=== PATIENT | male | born 1945 | race Caucasian/White ===

== ENCOUNTER 2018-09-09 19:40 | Inpatient (IN) | payer MEDICARE, BC ==
[2018-09-09] MEDS: ATORVASTATIN 10 MG TAB PO (21:00)
[2018-09-09] MEDS ORDERED: GLUCAGON 1 MG INJ IM (21:00)
[2018-09-09] MEDS: GUAIFENESIN LA 600 MG TABSR PO (21:00)
[2018-09-09] MEDS: MAGNESIUM OXIDE 400 MG TAB PO (21:00)
[2018-09-09] MEDS ORDERED: GLUCOSE GEL 15 GRAM TUBE BUCCAL (21:00)
[2018-09-09] MEDS: POLYETHYLENE GLYCOL 17 GM PACKET PO (21:00)
[2018-09-09] MEDS ORDERED: DEXTROSE 50% 50 ML SYRINGE IV ×2 (21:00)
[2018-09-09] MEDS ORDERED: GLUCOSE GEL 15 GRAM TUBE PO ×2 (21:00)
[2018-09-09] MEDS: ACCU-CHEK XX (21:00)
[2018-09-09] MEDS ORDERED: DOCUSATE SODIUM 100 MG CAP PO (21:00)
[2018-09-09] MEDS: TAMSULOSIN (SR) 0.4 MG CAP PO (21:00)
[2018-09-09] MEDS: INSULIN ASPART [NOVOLOG] 3 ML PEN SC (22:00)
[2018-09-09] MEDS ORDERED: PENDING SANTYL ORDER FOR WOUND CARE XX (22:00)
[2018-09-10 00:46] LABS: ADD UMIC YES; UR ASCORBIC ACID NEGATIVE (NEGATIVE); UR BACTERIA FEW /HPF (NONE SEEN); UR BILIRUBIN (Dip) NEGATIVE (NEGATIVE); UR BLOOD (Dip) 2+ mg/dL (NEGATIVE); UR CLARITY SLIGHTLY CLOUDY (CLEAR); UR COLOR YELLOW (YELLOW); UR GLUCOSE (Dip) NEGATIVE (NEGATIVE); UR KETONES (Dip) NEGATIVE (NEGATIVE); UR LEUKOCYTE ESTERASE (Dip) NEGATIVE Leu/ul (NEGATIVE); UR MUCUS FEW /HPF (NONE SEEN); UR NITRITE (Dip) NEGATIVE (NEGATIVE); UR RBC 9 /HPF (0-5); UR SPECIFIC GRAVITY (Dip) 1.029 (1.003-1.030); UR TOTAL PROTEIN (Dip) NEGATIVE (NEGATIVE); UR UROBILINOGEN (Dip) 1+ mg/dL (NEGATIVE); UR WBC 5 /HPF (0-5)
[2018-09-10] MEDS: LEVOTHYROXINE 125 MCG TAB PO (06:05)
[2018-09-10] MEDS: ACETAMINOPHEN 325 MG TAB PO ×4 (06:05→18:20)
[2018-09-10] MEDS: METHOCARBAMOL 750 MG TAB PO (06:05)
[2018-09-10] MEDS: LANSOPRAZOLE 30 MG CAP PO (06:05)
[2018-09-10 06:22] LABS: ADD MAN DIFF? NO
[2018-09-10 06:25] LABS: WHITE BLOOD COUNT 5.7 10^3/ul (4.8-10.8)
[2018-09-10 06:25] LABS: ABNORMAL IP MESSAGE 1; BASOPHILS % 0.2 % (0.0-2.0); EOSINOPHILS % 0.4 % (0.0-7.0); HEMATOCRIT 40.5 % (42.0-52.0); HEMOGLOBIN 13.5 g/dl (14.0-18.0); LYMPHOCYTES # 0.6 10^3/ul (0.8-2.9); LYMPHOCYTES % 10.3 % (15.0-51.0); MEAN CORPUSCULAR HEMOGLOBIN 32.9 pg (29.0-33.0); MEAN CORPUSCULAR HGB CONC 33.3 g/dl (32.0-37.0); MEAN CORPUSCULAR VOLUME 98.8 fl (82.0-101.0); MEAN PLATELET VOLUME 10.7 fl (7.4-10.4); MONOCYTES % 16.6 % (0.0-11.0); NEUTROPHIL # 4.1 10^3/ul (1.6-7.5); NEUTROPHILS % 72.1 % (39.0-77.0); PLATELET COUNT 155 10^3/UL (140-415); POSITIVE DIFF @See below; RED CELL DISTRIBUTION WIDTH 13.2 % (11.5-14.5)
[2018-09-10 06:47] LABS: HEMOGLOBIN A1C 6.7 % (0-5.9)
[2018-09-10 06:58] LABS: ALANINE AMINOTRANSFERASE 7 IU/L (13-69); ALBUMIN 3.3 g/dl (3.3-4.9); ALBUMIN/GLOBULIN RATIO 0.97; ALKALINE PHOSPHATASE 48 IU/L (42-121); ANION GAP 9 (5-13); ASPARTATE AMINO TRANSFERASE 27 IU/L (15-46); BILIRUBIN,INDIRECT 0.4 mg/dl (0-1.1); BILIRUBIN,TOTAL 0.4 mg/dl (0.2-1.3); BLOOD UREA NITROGEN 25 mg/dl (7-20); CALCIUM 8.7 mg/dl (8.4-10.2); CARBON DIOXIDE 28 mmol/L (21-31); CHLORIDE 98 mmol/L (97-110); CREATININE 1.48 mg/dl (0.61-1.24); GLUCOSE 143 mg/dl (70-220); POTASSIUM 4.4 mmol/L (3.5-5.1); SODIUM 135 mmol/L (135-144); TOTAL PROTEIN 6.7 g/dl (6.1-8.1)
[2018-09-10] MEDS: INSULIN ASPART [NOVOLOG] 3 ML PEN SC ×4 (07:35→21:00)
[2018-09-10] MEDS: metFORMIN 500 MG TAB PO ×2 (08:16→19:32)
[2018-09-10] MEDS: ACCU-CHEK XX ×4 (08:17→21:24)
[2018-09-10] MEDS: POLYETHYLENE GLYCOL 17 GM PACKET PO ×2 (09:00→20:57)
[2018-09-10] MEDS ORDERED: COLCHICINE 0.6 MG TAB PO (09:00)
[2018-09-10] MEDS: DOCUSATE SODIUM 100 MG CAP PO ×2 (09:00→20:57)
[2018-09-10] MEDS: traMADol 50 MG TAB PO (09:50)
[2018-09-10] MEDS: GUAIFENESIN LA 600 MG TABSR PO ×2 (09:53→20:49)
[2018-09-10] MEDS: FOLIC ACID 1 MG TAB PO (09:53)
[2018-09-10] MEDS: LOSARTAN 50 MG TAB PO (09:57)
[2018-09-10] MEDS: TAMSULOSIN (SR) 0.4 MG CAP PO (20:48)
[2018-09-10] MEDS: ATORVASTATIN 10 MG TAB PO (20:48)
[2018-09-10] MEDS: GABAPENTIN 100 MG CAP PO (20:49)
[2018-09-10] MEDS: MAGNESIUM OXIDE 400 MG TAB PO (20:49)
[2018-09-10] MEDS: SENNA TAB PO (20:58)
[2018-09-11] MEDS: traMADol 50 MG TAB PO ×3 (03:13→20:24)
[2018-09-11] MEDS: LEVOTHYROXINE 125 MCG TAB PO (06:09)
[2018-09-11] MEDS: LANSOPRAZOLE 30 MG CAP PO (06:09)
[2018-09-11] MEDS: ACETAMINOPHEN 325 MG TAB PO ×4 (06:12→17:55)
[2018-09-11 06:40] LABS: ADD MAN DIFF? NO
[2018-09-11 06:43] LABS: WHITE BLOOD COUNT 6.5 10^3/ul (4.8-10.8)
[2018-09-11 06:43] LABS: BASOPHILS % 0.3 % (0.0-2.0); EOSINOPHILS % 0.6 % (0.0-7.0); HEMATOCRIT 37.2 % (42.0-52.0); HEMOGLOBIN 12.5 g/dl (14.0-18.0); LYMPHOCYTES # 1.1 10^3/ul (0.8-2.9); LYMPHOCYTES % 17.5 % (15.0-51.0); MEAN CORPUSCULAR HEMOGLOBIN 32.7 pg (29.0-33.0); MEAN CORPUSCULAR HGB CONC 33.6 g/dl (32.0-37.0); MEAN CORPUSCULAR VOLUME 97.4 fl (82.0-101.0); MEAN PLATELET VOLUME 10.5 fl (7.4-10.4); MONOCYTE # 1.1 10^3/ul (0.3-0.9); MONOCYTES % 17.1 % (0.0-11.0); NEUTROPHIL # 4.1 10^3/ul (1.6-7.5); NEUTROPHILS % 63.6 % (39.0-77.0); PLATELET COUNT 154 10^3/UL (140-415); RED BLOOD COUNT 3.82 10^6/ul (4.70-6.10); RED CELL DISTRIBUTION WIDTH 13.4 % (11.5-14.5)
[2018-09-11 07:16] LABS: ANION GAP 8 (5-13); BLOOD UREA NITROGEN 26 mg/dl (7-20); CALCIUM 8.3 mg/dl (8.4-10.2); CARBON DIOXIDE 28 mmol/L (21-31); CHLORIDE 98 mmol/L (97-110); CREATININE 1.46 mg/dl (0.61-1.24); GLUCOSE 132 mg/dl (70-220); MAGNESIUM 2.2 mg/dl (1.7-2.5); PHOSPHORUS 3.8 mg/dl (2.5-4.9); POTASSIUM 4.1 mmol/L (3.5-5.1); SODIUM 134 mmol/L (135-144)
[2018-09-11] MEDS: INSULIN ASPART [NOVOLOG] 3 ML PEN SC ×4 (07:35→21:00)
[2018-09-11] MEDS: ACCU-CHEK XX ×4 (08:03→21:00)
[2018-09-11] MEDS: DOCUSATE SODIUM 100 MG CAP PO ×2 (08:41→21:00)
[2018-09-11] MEDS: metFORMIN 500 MG TAB PO ×2 (08:41→17:48)
[2018-09-11] MEDS: FOLIC ACID 1 MG TAB PO (08:43)
[2018-09-11] MEDS: LOSARTAN 50 MG TAB PO (08:43)
[2018-09-11] MEDS: GUAIFENESIN LA 600 MG TABSR PO ×2 (08:44→20:23)
[2018-09-11] MEDS: POLYETHYLENE GLYCOL 17 GM PACKET PO ×3 (08:44→21:00)
[2018-09-11] MEDS: GABAPENTIN 100 MG CAP PO ×2 (08:44→20:24)
[2018-09-11] MEDS: CYCLOBENZAPRINE 10 MG TAB PO ×2 (13:47→20:24)
[2018-09-11] MEDS: TAMSULOSIN (SR) 0.4 MG CAP PO (20:23)
[2018-09-11] MEDS: MAGNESIUM OXIDE 400 MG TAB PO (20:23)
[2018-09-11] MEDS: ATORVASTATIN 10 MG TAB PO (20:24)
[2018-09-11] MEDS: SENNA TAB PO (21:00)
[2018-09-12] MEDS: ACETAMINOPHEN 325 MG TAB PO ×4 (06:14→18:00)
[2018-09-12] MEDS: LANSOPRAZOLE 30 MG CAP PO (06:14)
[2018-09-12] MEDS: ACCU-CHEK XX ×4 (07:05→21:51)
[2018-09-12] MEDS: INSULIN ASPART [NOVOLOG] 3 ML PEN SC ×4 (07:35→21:00)
[2018-09-12] MEDS: metFORMIN 500 MG TAB PO ×3 (08:16→18:01)
[2018-09-12] MEDS: POLYETHYLENE GLYCOL 17 GM PACKET PO ×2 (09:00→21:00)
[2018-09-12] MEDS: GUAIFENESIN LA 600 MG TABSR PO ×2 (09:29→21:27)
[2018-09-12] MEDS: GABAPENTIN 100 MG CAP PO ×2 (09:29→20:48)
[2018-09-12] MEDS: DOCUSATE SODIUM 100 MG CAP PO ×2 (09:29→21:00)
[2018-09-12] MEDS: FOLIC ACID 1 MG TAB PO (09:30)
[2018-09-12] MEDS: traMADol 50 MG TAB PO (09:30)
[2018-09-12] MEDS: ONDANSETRON 4 MG TAB PO (09:30)
[2018-09-12] MEDS: CYCLOBENZAPRINE 10 MG TAB PO ×2 (09:30→13:03)
[2018-09-12] MEDS: LOSARTAN 50 MG TAB PO (09:30)
[2018-09-12] MEDS: LEVOTHYROXINE 125 MCG TAB PO (12:00)
[2018-09-12] MEDS: HYDROCODONE/APAP (10/325) TAB PO (15:53)
[2018-09-12] MEDS: TAMSULOSIN (SR) 0.4 MG CAP PO (20:47)
[2018-09-12] MEDS: BACLOFEN 10 MG TAB PO (20:48)
[2018-09-12] MEDS: MAGNESIUM OXIDE 400 MG TAB PO (20:48)
[2018-09-12] MEDS: ATORVASTATIN 10 MG TAB PO (20:48)
[2018-09-12] MEDS: SENNA TAB PO (21:00)
[2018-09-13] MEDS: LANSOPRAZOLE 30 MG CAP PO (06:11)
[2018-09-13] MEDS: LEVOTHYROXINE 125 MCG TAB PO (06:12)
[2018-09-13] MEDS: ACETAMINOPHEN 325 MG TAB PO ×4 (06:12→17:47)
[2018-09-13] MEDS: traMADol 50 MG TAB PO ×2 (06:13→10:36)
[2018-09-13] MEDS: ACCU-CHEK XX ×4 (07:05→21:00)
[2018-09-13] MEDS: INSULIN ASPART [NOVOLOG] 3 ML PEN SC ×4 (07:35→21:00)
[2018-09-13] MEDS: ALBUTEROL/IPRATROPIUM (NEB) 3 ML AMP HHN (08:54)
[2018-09-13 08:55] LABS: ADD MAN DIFF? NO
[2018-09-13] MEDS: DOCUSATE SODIUM 100 MG CAP PO ×3 (09:00→21:08)
[2018-09-13] MEDS: LOSARTAN 50 MG TAB PO (09:00)
[2018-09-13 09:03] LABS: WHITE BLOOD COUNT 7.2 10^3/ul (4.8-10.8)
[2018-09-13 09:03] LABS: BASOPHIL # 0.1 10^3/ul (0.0-0.1); BASOPHILS % 0.7 % (0.0-2.0); EOSINOPHILS # 0.1 10^3/ul (0.0-0.5); EOSINOPHILS % 1.1 % (0.0-7.0); HEMATOCRIT 37.5 % (42.0-52.0); HEMOGLOBIN 12.7 g/dl (14.0-18.0); LYMPHOCYTES # 1.2 10^3/ul (0.8-2.9); LYMPHOCYTES % 16.2 % (15.0-51.0); MEAN CORPUSCULAR HGB CONC 33.9 g/dl (32.0-37.0); MEAN CORPUSCULAR VOLUME 97.4 fl (82.0-101.0); MEAN PLATELET VOLUME 11.1 fl (7.4-10.4); MONOCYTE # 0.7 10^3/ul (0.3-0.9); NEUTROPHIL # 5.1 10^3/ul (1.6-7.5); NEUTROPHILS % 70.2 % (39.0-77.0); PLATELET COUNT 192 10^3/UL (140-415); RED BLOOD COUNT 3.85 10^6/ul (4.70-6.10); RED CELL DISTRIBUTION WIDTH 13.2 % (11.5-14.5)
[2018-09-13 09:45] LABS: ANION GAP 10 (5-13); BLOOD UREA NITROGEN 24 mg/dl (7-20); CALCIUM 8.4 mg/dl (8.4-10.2); CARBON DIOXIDE 27 mmol/L (21-31); CHLORIDE 97 mmol/L (97-110); CREATININE 1.17 mg/dl (0.61-1.24); GLUCOSE 102 mg/dl (70-220); PHOSPHORUS 3.8 mg/dl (2.5-4.9); SODIUM 134 mmol/L (135-144)
[2018-09-13] MEDS: GUAIFENESIN LA 600 MG TABSR PO ×2 (10:36→21:08)
[2018-09-13] MEDS: FOLIC ACID 1 MG TAB PO (10:37)
[2018-09-13] MEDS: metFORMIN 500 MG TAB PO ×2 (10:37→17:49)
[2018-09-13] MEDS: POLYETHYLENE GLYCOL 17 GM PACKET PO ×2 (10:38→10:52)
[2018-09-13] MEDS: BACLOFEN 10 MG TAB PO ×3 (10:38→21:08)
[2018-09-13] MEDS: GABAPENTIN 100 MG CAP PO ×2 (10:39→21:08)
[2018-09-13] MEDS: SENNA TAB PO (21:08)
[2018-09-13] MEDS: TAMSULOSIN (SR) 0.4 MG CAP PO (21:08)
[2018-09-13] MEDS: MAGNESIUM OXIDE 400 MG TAB PO (21:08)
[2018-09-13] MEDS: ATORVASTATIN 10 MG TAB PO (21:08)
[2018-09-14] MEDS: LANSOPRAZOLE 30 MG CAP PO (06:14)
[2018-09-14] MEDS: LEVOTHYROXINE 125 MCG TAB PO (06:16)
[2018-09-14] MEDS: ACCU-CHEK XX ×4 (07:05→21:00)
[2018-09-14] MEDS: INSULIN ASPART [NOVOLOG] 3 ML PEN SC ×4 (07:35→21:00)
[2018-09-14] MEDS: HYDROCODONE/APAP (10/325) TAB PO (08:54)
[2018-09-14] MEDS: GABAPENTIN 100 MG CAP PO ×2 (08:56→22:12)
[2018-09-14] MEDS: DOCUSATE SODIUM 100 MG CAP PO ×2 (08:56→21:00)
[2018-09-14] MEDS: BACLOFEN 10 MG TAB PO ×4 (08:56→22:31)
[2018-09-14] MEDS: metFORMIN 500 MG TAB PO ×2 (08:56→18:03)
[2018-09-14] MEDS: GUAIFENESIN LA 600 MG TABSR PO ×2 (08:56→22:14)
[2018-09-14] MEDS: LOSARTAN 50 MG TAB PO (09:05)
[2018-09-14] MEDS: FOLIC ACID 1 MG TAB PO (09:07)
[2018-09-14] MEDS: POLYETHYLENE GLYCOL 17 GM PACKET PO ×2 (09:08→21:00)
[2018-09-14 13:48] LABS: ADD MAN DIFF? NO
[2018-09-14 13:49] LABS: BASOPHIL # 0.1 10^3/ul (0.0-0.1); EOSINOPHILS # 0.1 10^3/ul (0.0-0.5); EOSINOPHILS % 1.3 % (0.0-7.0); HEMATOCRIT 40.7 % (42.0-52.0); HEMOGLOBIN 13.5 g/dl (14.0-18.0); LYMPHOCYTES # 1.5 10^3/ul (0.8-2.9); LYMPHOCYTES % 17.1 % (15.0-51.0); MEAN CORPUSCULAR HEMOGLOBIN 32.8 pg (29.0-33.0); MEAN CORPUSCULAR HGB CONC 33.2 g/dl (32.0-37.0); MEAN CORPUSCULAR VOLUME 98.8 fl (82.0-101.0); MEAN PLATELET VOLUME 9.5 fl (7.4-10.4); MONOCYTE # 0.7 10^3/ul (0.3-0.9); MONOCYTES % 8.3 % (0.0-11.0); NEUTROPHIL # 5.9 10^3/ul (1.6-7.5); NEUTROPHILS % 67.6 % (39.0-77.0); PLATELET COUNT 234 10^3/UL (140-415); RED BLOOD COUNT 4.12 10^6/ul (4.70-6.10); RED CELL DISTRIBUTION WIDTH 13.3 % (11.5-14.5)
[2018-09-14 13:49] LABS: WHITE BLOOD COUNT 8.7 10^3/ul (4.8-10.8)
[2018-09-14] MEDS: LACTULOSE 30ML CUP PO (18:04)
[2018-09-14] MEDS: SENNA TAB PO (21:00)
[2018-09-14] MEDS: MAGNESIUM OXIDE 400 MG TAB PO (22:12)
[2018-09-14] MEDS: ATORVASTATIN 10 MG TAB PO (22:12)
[2018-09-14] MEDS: TAMSULOSIN (SR) 0.4 MG CAP PO (22:13)
[2018-09-14] MEDS: traMADol 50 MG TAB PO (22:13)
[2018-09-15] MEDS: ACETAMINOPHEN 325 MG TAB PO (00:10)
[2018-09-15] MEDS: SALINE 0.65% 45 ML NAS SPRAY NASAL ×2 (00:11→18:40)
[2018-09-15] MEDS: LEVOTHYROXINE 125 MCG TAB PO (07:10)
[2018-09-15] MEDS: LANSOPRAZOLE 30 MG CAP PO (07:10)
[2018-09-15] MEDS: INSULIN ASPART [NOVOLOG] 3 ML PEN SC ×4 (07:35→20:27)
[2018-09-15] MEDS: ACCU-CHEK XX ×4 (08:00→20:27)
[2018-09-15] MEDS: metFORMIN 500 MG TAB PO ×2 (08:20→17:39)
[2018-09-15] MEDS: DOCUSATE SODIUM 100 MG CAP PO ×2 (09:00→20:20)
[2018-09-15] MEDS: POLYETHYLENE GLYCOL 17 GM PACKET PO ×2 (09:00→20:24)
[2018-09-15] MEDS: LOSARTAN 50 MG TAB PO (09:00)
[2018-09-15] MEDS: FOLIC ACID 1 MG TAB PO (09:51)
[2018-09-15] MEDS: GUAIFENESIN LA 600 MG TABSR PO ×2 (09:51→20:20)
[2018-09-15] MEDS: BACLOFEN 10 MG TAB PO ×3 (09:51→20:20)
[2018-09-15] MEDS: GABAPENTIN 100 MG CAP PO ×2 (09:51→20:20)
[2018-09-15] MEDS: ATORVASTATIN 10 MG TAB PO (20:20)
[2018-09-15] MEDS: MAGNESIUM OXIDE 400 MG TAB PO (20:20)
[2018-09-15] MEDS: TAMSULOSIN (SR) 0.4 MG CAP PO (20:20)
[2018-09-15] MEDS: SENNA TAB PO (20:25)
[2018-09-16] MEDS: LANSOPRAZOLE 30 MG CAP PO (06:45)
[2018-09-16] MEDS: LEVOTHYROXINE 125 MCG TAB PO (06:45)
[2018-09-16] MEDS: ACCU-CHEK XX ×4 (07:05→20:49)
[2018-09-16] MEDS: INSULIN ASPART [NOVOLOG] 3 ML PEN SC ×4 (07:35→20:49)
[2018-09-16] MEDS: metFORMIN 500 MG TAB PO ×2 (08:40→17:50)
[2018-09-16] MEDS: DOCUSATE SODIUM 100 MG CAP PO ×2 (08:41→20:37)
[2018-09-16] MEDS: GUAIFENESIN LA 600 MG TABSR PO ×2 (08:41→20:37)
[2018-09-16] MEDS: BACLOFEN 10 MG TAB PO ×3 (08:41→20:37)
[2018-09-16] MEDS: FOLIC ACID 1 MG TAB PO (08:41)
[2018-09-16] MEDS: GABAPENTIN 100 MG CAP PO ×2 (08:42→20:37)
[2018-09-16] MEDS: POLYETHYLENE GLYCOL 17 GM PACKET PO ×2 (08:42→20:37)
[2018-09-16] MEDS: LOSARTAN 50 MG TAB PO (08:42)
[2018-09-16] MEDS: ACETAMINOPHEN 325 MG TAB PO (13:48)
[2018-09-16] MEDS: TAMSULOSIN (SR) 0.4 MG CAP PO (20:37)
[2018-09-16] MEDS: MAGNESIUM OXIDE 400 MG TAB PO (20:37)
[2018-09-16] MEDS: SENNA TAB PO (20:37)
[2018-09-16] MEDS: ATORVASTATIN 10 MG TAB PO (20:37)
[2018-09-17] MEDS: LEVOTHYROXINE 125 MCG TAB PO (06:12)
[2018-09-17] MEDS: LANSOPRAZOLE 30 MG CAP PO (06:12)
[2018-09-17] MEDS: ACCU-CHEK XX ×4 (07:05→21:14)
[2018-09-17] MEDS: INSULIN ASPART [NOVOLOG] 3 ML PEN SC ×4 (07:35→20:57)
[2018-09-17] MEDS: DOCUSATE SODIUM 100 MG CAP PO ×2 (09:00→20:45)
[2018-09-17] MEDS: POLYETHYLENE GLYCOL 17 GM PACKET PO ×2 (09:00→20:46)
[2018-09-17] MEDS: metFORMIN 500 MG TAB PO ×2 (09:55→17:35)
[2018-09-17] MEDS: GUAIFENESIN LA 600 MG TABSR PO ×2 (09:57→20:45)
[2018-09-17] MEDS: BACLOFEN 10 MG TAB PO ×3 (09:57→20:44)
[2018-09-17] MEDS: LOSARTAN 50 MG TAB PO (09:58)
[2018-09-17] MEDS: GABAPENTIN 100 MG CAP PO ×2 (09:59→20:45)
[2018-09-17] MEDS: FOLIC ACID 1 MG TAB PO (12:37)
[2018-09-17] MEDS: ACETAMINOPHEN 325 MG TAB PO (20:44)
[2018-09-17] MEDS: ATORVASTATIN 10 MG TAB PO (20:44)
[2018-09-17] MEDS: MAGNESIUM OXIDE 400 MG TAB PO (20:44)
[2018-09-17] MEDS: TAMSULOSIN (SR) 0.4 MG CAP PO (20:45)
[2018-09-17] MEDS: SENNA TAB PO (20:46)
[2018-09-18] MEDS: LEVOTHYROXINE 125 MCG TAB PO (06:09)
[2018-09-18] MEDS: LANSOPRAZOLE 30 MG CAP PO (06:11)
[2018-09-18] MEDS: INSULIN ASPART [NOVOLOG] 3 ML PEN SC ×4 (07:35→21:00)
[2018-09-18] MEDS: ACCU-CHEK XX ×4 (08:02→21:00)
[2018-09-18] MEDS: metFORMIN 500 MG TAB PO ×2 (08:05→17:56)
[2018-09-18] MEDS: LOSARTAN 50 MG TAB PO (09:00)
[2018-09-18] MEDS: DOCUSATE SODIUM 100 MG CAP PO ×2 (09:00→21:00)
[2018-09-18] MEDS: POLYETHYLENE GLYCOL 17 GM PACKET PO ×2 (09:00→21:00)
[2018-09-18] MEDS: GUAIFENESIN LA 600 MG TABSR PO ×2 (09:39→21:08)
[2018-09-18] MEDS: GABAPENTIN 100 MG CAP PO ×2 (09:40→21:10)
[2018-09-18] MEDS: BACLOFEN 10 MG TAB PO ×3 (09:42→21:10)
[2018-09-18] MEDS: FOLIC ACID 1 MG TAB PO (09:42)
[2018-09-18] MEDS: ALBUTEROL/IPRATROPIUM (NEB) 3 ML AMP HHN (10:44)
[2018-09-18] MEDS: SALINE 0.65% 45 ML NAS SPRAY NASAL (18:55)
[2018-09-18] MEDS: SENNA TAB PO (21:00)
[2018-09-18] MEDS: ATORVASTATIN 10 MG TAB PO (21:08)
[2018-09-18] MEDS: ACETAMINOPHEN 325 MG TAB PO (21:09)
[2018-09-18] MEDS: MAGNESIUM OXIDE 400 MG TAB PO (21:10)
[2018-09-18] MEDS: TAMSULOSIN (SR) 0.4 MG CAP PO (21:12)
[2018-09-19] MEDS: LANSOPRAZOLE 30 MG CAP PO (06:03)
[2018-09-19] MEDS: LEVOTHYROXINE 125 MCG TAB PO (06:03)
[2018-09-19] MEDS: INSULIN ASPART [NOVOLOG] 3 ML PEN SC ×4 (07:35→21:00)
[2018-09-19] MEDS: ACCU-CHEK XX ×4 (07:55→21:00)
[2018-09-19] MEDS: metFORMIN 500 MG TAB PO ×2 (08:19→17:35)
[2018-09-19] MEDS: DOCUSATE SODIUM 100 MG CAP PO ×2 (08:35→21:00)
[2018-09-19] MEDS: LOSARTAN 50 MG TAB PO (08:35)
[2018-09-19] MEDS: GUAIFENESIN LA 600 MG TABSR PO ×2 (08:36→21:24)
[2018-09-19] MEDS: FOLIC ACID 1 MG TAB PO (08:36)
[2018-09-19] MEDS: BACLOFEN 10 MG TAB PO ×3 (08:36→21:25)
[2018-09-19] MEDS: GABAPENTIN 100 MG CAP PO ×2 (08:36→21:25)
[2018-09-19] MEDS: POLYETHYLENE GLYCOL 17 GM PACKET PO ×2 (08:37→21:00)
[2018-09-19] MEDS: SENNA TAB PO (21:00)
[2018-09-19] MEDS: ACETAMINOPHEN 325 MG TAB PO (21:24)
[2018-09-19] MEDS: TAMSULOSIN (SR) 0.4 MG CAP PO (21:24)
[2018-09-19] MEDS: ATORVASTATIN 10 MG TAB PO (21:24)
[2018-09-19] MEDS: MAGNESIUM OXIDE 400 MG TAB PO (21:24)
[2018-09-20] MEDS: LANSOPRAZOLE 30 MG CAP PO (05:54)
[2018-09-20] MEDS: LEVOTHYROXINE 125 MCG TAB PO (05:54)
[2018-09-20 07:27] LABS: ADD MAN DIFF? NO
[2018-09-20 07:32] LABS: WHITE BLOOD COUNT 8.9 10^3/ul (4.8-10.8)
[2018-09-20 07:32] LABS: ABNORMAL IP MESSAGE 1; BASOPHIL # 0.1 10^3/ul (0.0-0.1); EOSINOPHILS # 0.2 10^3/ul (0.0-0.5); EOSINOPHILS % 2.6 % (0.0-7.0); HEMATOCRIT 38.3 % (42.0-52.0); HEMOGLOBIN 12.2 g/dl (14.0-18.0); LYMPHOCYTES # 1.7 10^3/ul (0.8-2.9); LYMPHOCYTES % 19.5 % (15.0-51.0); MEAN CORPUSCULAR HEMOGLOBIN 31.7 pg (29.0-33.0); MEAN CORPUSCULAR HGB CONC 31.9 g/dl (32.0-37.0); MEAN CORPUSCULAR VOLUME 99.5 fl (82.0-101.0); MEAN PLATELET VOLUME 9.8 fl (7.4-10.4); MONOCYTE # 0.7 10^3/ul (0.3-0.9); MONOCYTES % 7.8 % (0.0-11.0); NEUTROPHIL # 5.7 10^3/ul (1.6-7.5); NEUTROPHILS % 63.8 % (39.0-77.0); PLATELET COUNT 428 10^3/UL (140-415); POSITIVE DIFF @See below; RED BLOOD COUNT 3.85 10^6/ul (4.70-6.10); RED CELL DISTRIBUTION WIDTH 13.2 % (11.5-14.5)
[2018-09-20] MEDS: INSULIN ASPART [NOVOLOG] 3 ML PEN SC ×4 (07:35→21:00)
[2018-09-20] MEDS: metFORMIN 500 MG TAB PO ×2 (07:49→17:47)
[2018-09-20] MEDS: ACCU-CHEK XX ×4 (07:49→21:00)
[2018-09-20 07:52] LABS: ANION GAP 8 (5-13); BLOOD UREA NITROGEN 26 mg/dl (7-20); CARBON DIOXIDE 27 mmol/L (21-31); CHLORIDE 104 mmol/L (97-110); CREATININE 1.36 mg/dl (0.61-1.24); GLUCOSE 104 mg/dl (70-220); PHOSPHORUS 4.1 mg/dl (2.5-4.9); POTASSIUM 4.2 mmol/L (3.5-5.1); SODIUM 139 mmol/L (135-144)
[2018-09-20] MEDS: SALINE 0.65% 45 ML NAS SPRAY NASAL (08:17)
[2018-09-20] MEDS: GUAIFENESIN LA 600 MG TABSR PO ×2 (08:41→20:35)
[2018-09-20] MEDS: GABAPENTIN 100 MG CAP PO ×2 (08:42→20:35)
[2018-09-20] MEDS: BACLOFEN 10 MG TAB PO ×3 (08:42→20:34)
[2018-09-20] MEDS: FOLIC ACID 1 MG TAB PO (08:42)
[2018-09-20] MEDS: LOSARTAN 50 MG TAB PO (08:43)
[2018-09-20] MEDS: POLYETHYLENE GLYCOL 17 GM PACKET PO ×2 (08:45→21:00)
[2018-09-20] MEDS: DOCUSATE SODIUM 100 MG CAP PO ×2 (08:45→20:34)
[2018-09-20] MEDS: TAMSULOSIN (SR) 0.4 MG CAP PO (20:34)
[2018-09-20] MEDS: SENNA TAB PO (20:34)
[2018-09-20] MEDS: MAGNESIUM OXIDE 400 MG TAB PO (20:35)
[2018-09-20] MEDS: ATORVASTATIN 10 MG TAB PO (20:35)
[2018-09-20] MEDS: ACETAMINOPHEN 325 MG TAB PO (20:35)
[2018-09-21] MEDS: LEVOTHYROXINE 125 MCG TAB PO (06:05)
[2018-09-21] MEDS: LANSOPRAZOLE 30 MG CAP PO (06:05)
[2018-09-21] MEDS: INSULIN ASPART [NOVOLOG] 3 ML PEN SC ×4 (07:35→21:00)
[2018-09-21] MEDS: ACCU-CHEK XX ×4 (07:59→21:00)
[2018-09-21] MEDS: metFORMIN 500 MG TAB PO ×2 (08:02→17:46)
[2018-09-21] MEDS: POLYETHYLENE GLYCOL 17 GM PACKET PO ×3 (09:00→21:30)
[2018-09-21] MEDS: GABAPENTIN 100 MG CAP PO ×2 (09:00→21:33)
[2018-09-21] MEDS: DOCUSATE SODIUM 100 MG CAP PO ×2 (09:54→21:32)
[2018-09-21] MEDS: FOLIC ACID 1 MG TAB PO (09:54)
[2018-09-21] MEDS: BACLOFEN 10 MG TAB PO ×3 (09:55→21:31)
[2018-09-21] MEDS: GUAIFENESIN LA 600 MG TABSR PO ×2 (09:55→21:31)
[2018-09-21] MEDS: LOSARTAN 50 MG TAB PO (10:08)
[2018-09-21] MEDS: MAGNESIUM OXIDE 400 MG TAB PO (21:31)
[2018-09-21] MEDS: ATORVASTATIN 10 MG TAB PO (21:31)
[2018-09-21] MEDS: ACETAMINOPHEN 325 MG TAB PO (21:31)
[2018-09-21] MEDS: SENNA TAB PO (21:32)
[2018-09-21] MEDS: TAMSULOSIN (SR) 0.4 MG CAP PO (21:33)
[2018-09-22] MEDS: LEVOTHYROXINE 125 MCG TAB PO (05:59)
[2018-09-22] MEDS: LANSOPRAZOLE 30 MG CAP PO (05:59)
[2018-09-22] MEDS: INSULIN ASPART [NOVOLOG] 3 ML PEN SC ×4 (07:35→20:11)
[2018-09-22] MEDS: ACCU-CHEK XX ×4 (08:00→20:11)
[2018-09-22] MEDS: metFORMIN 500 MG TAB PO ×2 (08:03→17:33)
[2018-09-22] MEDS: BACLOFEN 10 MG TAB PO ×3 (09:15→20:10)
[2018-09-22] MEDS: GABAPENTIN 100 MG CAP PO ×2 (09:16→20:10)
[2018-09-22] MEDS: GUAIFENESIN LA 600 MG TABSR PO ×2 (09:16→20:10)
[2018-09-22] MEDS: FOLIC ACID 1 MG TAB PO (09:16)
[2018-09-22] MEDS: DOCUSATE SODIUM 100 MG CAP PO ×2 (09:16→20:10)
[2018-09-22] MEDS: LOSARTAN 50 MG TAB PO (09:16)
[2018-09-22] MEDS: POLYETHYLENE GLYCOL 17 GM PACKET PO ×2 (09:17→20:17)
[2018-09-22] MEDS: BISACODYL 10 MG SUPP PR (14:56)
[2018-09-22] MEDS: MAGNESIUM OXIDE 400 MG TAB PO (20:10)
[2018-09-22] MEDS: ATORVASTATIN 10 MG TAB PO (20:10)
[2018-09-22] MEDS: CYCLOBENZAPRINE 10 MG TAB PO (20:10)
[2018-09-22] MEDS: SENNA TAB PO (20:10)
[2018-09-22] MEDS: TAMSULOSIN (SR) 0.4 MG CAP PO (20:10)
[2018-09-22] MEDS: ACETAMINOPHEN 325 MG TAB PO (20:11)
[2018-09-23] MEDS: LANSOPRAZOLE 30 MG CAP PO (06:28)
[2018-09-23] MEDS: LEVOTHYROXINE 125 MCG TAB PO (06:28)
[2018-09-23] MEDS: ACCU-CHEK XX ×4 (07:05→20:22)
[2018-09-23] MEDS: INSULIN ASPART [NOVOLOG] 3 ML PEN SC ×4 (07:35→20:22)
[2018-09-23] MEDS: metFORMIN 500 MG TAB PO ×2 (08:16→17:05)
[2018-09-23] MEDS: GUAIFENESIN LA 600 MG TABSR PO ×2 (08:17→20:21)
[2018-09-23] MEDS: BACLOFEN 10 MG TAB PO ×3 (08:17→20:21)
[2018-09-23] MEDS: FOLIC ACID 1 MG TAB PO (08:17)
[2018-09-23] MEDS: GABAPENTIN 100 MG CAP PO ×2 (08:18→20:21)
[2018-09-23] MEDS: POLYETHYLENE GLYCOL 17 GM PACKET PO ×2 (08:18→20:22)
[2018-09-23] MEDS: DOCUSATE SODIUM 100 MG CAP PO ×2 (08:33→20:21)
[2018-09-23] MEDS: LOSARTAN 50 MG TAB PO (09:00)
[2018-09-23] MEDS: ACETAMINOPHEN 325 MG TAB PO ×2 (16:59→20:21)
[2018-09-23] MEDS: ATORVASTATIN 10 MG TAB PO (20:21)
[2018-09-23] MEDS: MAGNESIUM OXIDE 400 MG TAB PO (20:21)
[2018-09-23] MEDS: TAMSULOSIN (SR) 0.4 MG CAP PO (20:21)
[2018-09-23] MEDS: SENNA TAB PO (20:21)
[2018-09-23] MEDS: LACTULOSE 30ML CUP PO (21:38)
[2018-09-24] MEDS: LEVOTHYROXINE 125 MCG TAB PO (06:20)
[2018-09-24] MEDS: LANSOPRAZOLE 30 MG CAP PO (06:20)
[2018-09-24] MEDS: INSULIN ASPART [NOVOLOG] 3 ML PEN SC ×4 (07:35→21:00)
[2018-09-24] MEDS: ACCU-CHEK XX ×4 (08:04→21:39)
[2018-09-24] MEDS: metFORMIN 500 MG TAB PO ×2 (08:44→17:05)
[2018-09-24] MEDS: DOCUSATE SODIUM 100 MG CAP PO ×2 (08:59→20:43)
[2018-09-24] MEDS: GUAIFENESIN LA 600 MG TABSR PO ×2 (08:59→20:43)
[2018-09-24] MEDS: FOLIC ACID 1 MG TAB PO (08:59)
[2018-09-24] MEDS: POLYETHYLENE GLYCOL 17 GM PACKET PO ×2 (09:00→20:42)
[2018-09-24] MEDS: BACLOFEN 10 MG TAB PO ×3 (09:00→20:43)
[2018-09-24] MEDS: LOSARTAN 50 MG TAB PO (09:00)
[2018-09-24] MEDS: GABAPENTIN 100 MG CAP PO ×2 (09:00→20:43)
[2018-09-24] MEDS: MAGNESIUM OXIDE 400 MG TAB PO (20:43)
[2018-09-24] MEDS: SENNA TAB PO (20:43)
[2018-09-24] MEDS: ATORVASTATIN 10 MG TAB PO (20:43)
[2018-09-24] MEDS: TAMSULOSIN (SR) 0.4 MG CAP PO (20:43)
[2018-09-25] MEDS: LEVOTHYROXINE 125 MCG TAB PO (06:43)
[2018-09-25] MEDS: LANSOPRAZOLE 30 MG CAP PO (06:43)
[2018-09-25] MEDS: ACCU-CHEK XX ×4 (07:05→21:00)
[2018-09-25] MEDS: INSULIN ASPART [NOVOLOG] 3 ML PEN SC ×4 (07:35→21:00)
[2018-09-25] MEDS: metFORMIN 500 MG TAB PO ×2 (08:09→17:46)
[2018-09-25 08:40] LABS: ADD MAN DIFF? NO
[2018-09-25 08:41] LABS: BASOPHIL # 0.1 10^3/ul (0.0-0.1); BASOPHILS % 0.8 % (0.0-2.0); EOSINOPHILS # 0.2 10^3/ul (0.0-0.5); EOSINOPHILS % 1.8 % (0.0-7.0); HEMATOCRIT 39.9 % (42.0-52.0); HEMOGLOBIN 13.2 g/dl (14.0-18.0); LYMPHOCYTES # 1.5 10^3/ul (0.8-2.9); LYMPHOCYTES % 14.2 % (15.0-51.0); MEAN CORPUSCULAR HEMOGLOBIN 32.4 pg (29.0-33.0); MEAN CORPUSCULAR HGB CONC 33.1 g/dl (32.0-37.0); MEAN PLATELET VOLUME 9.8 fl (7.4-10.4); MONOCYTE # 0.8 10^3/ul (0.3-0.9); MONOCYTES % 7.4 % (0.0-11.0); NEUTROPHIL # 7.8 10^3/ul (1.6-7.5); NEUTROPHILS % 74.3 % (39.0-77.0); PLATELET COUNT 370 10^3/UL (140-415); RED BLOOD COUNT 4.07 10^6/ul (4.70-6.10); RED CELL DISTRIBUTION WIDTH 13.5 % (11.5-14.5)
[2018-09-25 08:41] LABS: WHITE BLOOD COUNT 10.5 10^3/ul (4.8-10.8)
[2018-09-25] MEDS: LOSARTAN 50 MG TAB PO ×2 (09:00→09:10)
[2018-09-25 09:03] LABS: ANION GAP 11 (5-13); BLOOD UREA NITROGEN 26 mg/dl (7-20); CALCIUM 9.3 mg/dl (8.4-10.2); CARBON DIOXIDE 29 mmol/L (21-31); CHLORIDE 100 mmol/L (97-110); GLUCOSE 123 mg/dl (70-220); PHOSPHORUS 3.7 mg/dl (2.5-4.9); POTASSIUM 4.6 mmol/L (3.5-5.1); SODIUM 140 mmol/L (135-144)
[2018-09-25] MEDS: BACLOFEN 10 MG TAB PO ×3 (09:10→21:09)
[2018-09-25] MEDS: GABAPENTIN 100 MG CAP PO ×2 (09:10→21:09)
[2018-09-25] MEDS: GUAIFENESIN LA 600 MG TABSR PO ×2 (09:10→21:09)
[2018-09-25] MEDS: DOCUSATE SODIUM 100 MG CAP PO ×2 (09:10→21:09)
[2018-09-25] MEDS: POLYETHYLENE GLYCOL 17 GM PACKET PO ×2 (09:11→21:00)
[2018-09-25] MEDS: FOLIC ACID 1 MG TAB PO (09:11)
[2018-09-25] MEDS: TAMSULOSIN (SR) 0.4 MG CAP PO (21:09)
[2018-09-25] MEDS: MAGNESIUM OXIDE 400 MG TAB PO (21:09)
[2018-09-25] MEDS: ATORVASTATIN 10 MG TAB PO (21:09)
[2018-09-25] MEDS: SENNA TAB PO (21:09)
[2018-09-26] MEDS: LEVOTHYROXINE 125 MCG TAB PO (06:29)
[2018-09-26] MEDS: traMADol 50 MG TAB PO (06:29)
[2018-09-26] MEDS: LANSOPRAZOLE 30 MG CAP PO (06:29)
[2018-09-26] MEDS: INSULIN ASPART [NOVOLOG] 3 ML PEN SC ×4 (07:35→21:00)
[2018-09-26] MEDS: metFORMIN 500 MG TAB PO ×2 (08:03→18:03)
[2018-09-26] MEDS: ACCU-CHEK XX ×4 (08:04→21:00)
[2018-09-26] MEDS: FOLIC ACID 1 MG TAB PO (09:07)
[2018-09-26] MEDS: GABAPENTIN 100 MG CAP PO ×2 (09:07→22:35)
[2018-09-26] MEDS: GUAIFENESIN LA 600 MG TABSR PO ×2 (09:08→22:35)
[2018-09-26] MEDS: DOCUSATE SODIUM 100 MG CAP PO ×2 (09:08→22:35)
[2018-09-26] MEDS: POLYETHYLENE GLYCOL 17 GM PACKET PO ×2 (09:09→22:34)
[2018-09-26] MEDS: LOSARTAN 50 MG TAB PO (10:09)
[2018-09-26] MEDS: BACLOFEN 10 MG TAB PO ×3 (10:09→22:34)
[2018-09-26] MEDS: ENOXAPARIN 30 MG/0.3 ML SYG SC (18:06)
[2018-09-26] MEDS: CYANOCOBALAMIN 1000 MCG INJ IM (22:30)
[2018-09-26] MEDS: HYDROCORTISONE 0.5% 28.35 GM CR TOP (22:33)
[2018-09-26] MEDS: SENNA TAB PO (22:34)
[2018-09-26] MEDS: TAMSULOSIN (SR) 0.4 MG CAP PO (22:34)
[2018-09-26] MEDS: MAGNESIUM OXIDE 400 MG TAB PO (22:35)
[2018-09-26] MEDS: ATORVASTATIN 10 MG TAB PO (22:35)
[2018-09-27] MEDS: LEVOTHYROXINE 125 MCG TAB PO (06:35)
[2018-09-27] MEDS: LANSOPRAZOLE 30 MG CAP PO (06:35)
[2018-09-27] MEDS: INSULIN ASPART [NOVOLOG] 3 ML PEN SC ×4 (07:35→21:00)
[2018-09-27] MEDS: traMADol 50 MG TAB PO ×2 (07:44→12:08)
[2018-09-27] MEDS: ACCU-CHEK XX ×4 (08:12→21:00)
[2018-09-27] MEDS: HYDROCODONE/APAP (10/325) TAB PO ×2 (08:13→13:28)
[2018-09-27] MEDS: metFORMIN 500 MG TAB PO ×2 (08:13→18:00)
[2018-09-27] MEDS: GUAIFENESIN LA 600 MG TABSR PO ×2 (09:00→21:36)
[2018-09-27] MEDS: HYDROCORTISONE 0.5% 28.35 GM CR TOP ×2 (09:00→21:37)
[2018-09-27] MEDS: GABAPENTIN 100 MG CAP PO ×2 (09:21→21:36)
[2018-09-27] MEDS: DOCUSATE SODIUM 100 MG CAP PO ×2 (09:21→21:36)
[2018-09-27] MEDS: POLYETHYLENE GLYCOL 17 GM PACKET PO ×2 (09:21→21:37)
[2018-09-27] MEDS: BACLOFEN 10 MG TAB PO ×3 (09:22→21:36)
[2018-09-27] MEDS: LOSARTAN 50 MG TAB PO (09:22)
[2018-09-27] MEDS: FOLIC ACID 1 MG TAB PO (09:22)
[2018-09-27] MEDS: ENOXAPARIN 30 MG/0.3 ML SYG SC (09:29)
[2018-09-27] MEDS: COLCHICINE 0.6 MG TAB PO (10:58)
[2018-09-27] MEDS: MAGNESIUM OXIDE 400 MG TAB PO (21:36)
[2018-09-27] MEDS: TAMSULOSIN (SR) 0.4 MG CAP PO (21:36)
[2018-09-27] MEDS: SENNA TAB PO (21:36)
[2018-09-27] MEDS: ACETAMINOPHEN 325 MG TAB PO (21:37)
[2018-09-28] MEDS: LEVOTHYROXINE 125 MCG TAB PO (06:43)
[2018-09-28] MEDS: LANSOPRAZOLE 30 MG CAP PO (06:43)
[2018-09-28 07:05] LABS: ADD MAN DIFF? NO
[2018-09-28] MEDS: ACCU-CHEK XX ×4 (07:05→20:49)
[2018-09-28 07:09] LABS: BASOPHILS % 0.5 % (0.0-2.0); EOSINOPHILS # 0.2 10^3/ul (0.0-0.5); EOSINOPHILS % 2.7 % (0.0-7.0); HEMATOCRIT 37.4 % (42.0-52.0); HEMOGLOBIN 12.3 g/dl (14.0-18.0); LYMPHOCYTES # 1.6 10^3/ul (0.8-2.9); LYMPHOCYTES % 19.7 % (15.0-51.0); MEAN CORPUSCULAR HEMOGLOBIN 32.2 pg (29.0-33.0); MEAN CORPUSCULAR HGB CONC 32.9 g/dl (32.0-37.0); MEAN CORPUSCULAR VOLUME 97.9 fl (82.0-101.0); MEAN PLATELET VOLUME 9.7 fl (7.4-10.4); MONOCYTE # 1.1 10^3/ul (0.3-0.9); MONOCYTES % 13.5 % (0.0-11.0); NEUTROPHIL # 5.2 10^3/ul (1.6-7.5); NEUTROPHILS % 62.4 % (39.0-77.0); PLATELET COUNT 267 10^3/UL (140-415); RED BLOOD COUNT 3.82 10^6/ul (4.70-6.10); RED CELL DISTRIBUTION WIDTH 13.9 % (11.5-14.5)
[2018-09-28 07:09] LABS: WHITE BLOOD COUNT 8.3 10^3/ul (4.8-10.8)
[2018-09-28 07:31] LABS: ANION GAP 11 (5-13); BLOOD UREA NITROGEN 24 mg/dl (7-20); CARBON DIOXIDE 29 mmol/L (21-31); CHLORIDE 98 mmol/L (97-110); CREATININE 1.26 mg/dl (0.61-1.24); GLUCOSE 115 mg/dl (70-220); PHOSPHORUS 4.2 mg/dl (2.5-4.9); POTASSIUM 4.1 mmol/L (3.5-5.1); SODIUM 138 mmol/L (135-144)
[2018-09-28] MEDS: INSULIN ASPART [NOVOLOG] 3 ML PEN SC ×4 (07:35→20:49)
[2018-09-28] MEDS: metFORMIN 500 MG TAB PO ×2 (08:01→17:39)
[2018-09-28] MEDS: FOLIC ACID 1 MG TAB PO (08:09)
[2018-09-28] MEDS: GABAPENTIN 100 MG CAP PO ×2 (08:09→20:52)
[2018-09-28] MEDS: GUAIFENESIN LA 600 MG TABSR PO ×2 (08:09→20:52)
[2018-09-28] MEDS: POLYETHYLENE GLYCOL 17 GM PACKET PO ×2 (08:09→20:54)
[2018-09-28] MEDS: DOCUSATE SODIUM 100 MG CAP PO ×2 (08:09→20:52)
[2018-09-28] MEDS: HYDROCORTISONE 0.5% 28.35 GM CR TOP ×2 (08:10→20:54)
[2018-09-28] MEDS: ENOXAPARIN 30 MG/0.3 ML SYG SC (08:10)
[2018-09-28] MEDS: BACLOFEN 10 MG TAB PO ×3 (08:10→20:52)
[2018-09-28] MEDS: LOSARTAN 50 MG TAB PO (08:17)
[2018-09-28] MEDS: COLCHICINE 0.6 MG TAB PO (09:46)
[2018-09-28] MEDS: HYDROCODONE/APAP (10/325) TAB PO (09:46)
[2018-09-28] MEDS: TAMSULOSIN (SR) 0.4 MG CAP PO (20:52)
[2018-09-28] MEDS: SENNA TAB PO (20:53)
[2018-09-28] MEDS: MAGNESIUM OXIDE 400 MG TAB PO (20:53)
[2018-09-28] MEDS: ACETAMINOPHEN 325 MG TAB PO (20:55)
[2018-09-29] MEDS: LANSOPRAZOLE 30 MG CAP PO (06:39)
[2018-09-29] MEDS: LEVOTHYROXINE 125 MCG TAB PO (06:39)
[2018-09-29] MEDS: INSULIN ASPART [NOVOLOG] 3 ML PEN SC ×2 (07:35→12:00)
[2018-09-29] MEDS: ACCU-CHEK XX ×2 (07:41→12:00)
[2018-09-29] MEDS: POLYETHYLENE GLYCOL 17 GM PACKET PO (08:01)
[2018-09-29] MEDS: BACLOFEN 10 MG TAB PO (08:02)
[2018-09-29] MEDS: metFORMIN 500 MG TAB PO (08:02)
[2018-09-29] MEDS: FOLIC ACID 1 MG TAB PO (08:02)
[2018-09-29] MEDS: DOCUSATE SODIUM 100 MG CAP PO (08:02)
[2018-09-29] MEDS: GABAPENTIN 100 MG CAP PO (08:02)
[2018-09-29] MEDS: HYDROCODONE/APAP (10/325) TAB PO ×2 (08:06→12:18)
[2018-09-29] MEDS: ENOXAPARIN 30 MG/0.3 ML SYG SC (08:07)
[2018-09-29] MEDS: LOSARTAN 50 MG TAB PO (08:08)
[2018-09-29] MEDS: GUAIFENESIN LA 600 MG TABSR PO (08:08)
[2018-09-29] MEDS: HYDROCORTISONE 0.5% 28.35 GM CR TOP (09:00)
== END 2018-09-29 12:30 | disposition home health service (06) | DRG 949 ==
LOC: VRC 19:40
DX: S14.103D Unspecified injury at C3 level of cervical spinal cord, subsequent encounter (principal); E87.0 Hyperosmolality and hypernatremia; R65.10 Systemic inflammatory response syndrome (SIRS) of non-infectious origin without acute organ dysfunction; J98.11 Atelectasis; G89.18 Other acute postprocedural pain; M54.2 Cervicalgia; G62.9 Polyneuropathy, unspecified; E11.22 Type 2 diabetes mellitus with diabetic chronic kidney disease; I12.9 Hypertensive chronic kidney disease with stage 1 through stage 4 chronic kidney disease, or unspecified chronic kidney disease; N18.3 Chronic kidney disease, stage 3 (moderate); N40.0 Benign prostatic hyperplasia without lower urinary tract symptoms; E78.5 Hyperlipidemia, unspecified; E03.9 Hypothyroidism, unspecified; Z74.09 Other reduced mobility; Z98.1 Arthrodesis status; F06.31 Mood disorder due to known physiological condition with depressive features; K59.00 Constipation, unspecified; M10.9 Gout, unspecified; I95.2 Hypotension due to drugs; T44.6X5A Adverse effect of alpha-adrenoreceptor antagonists, initial encounter; Y92.239 Unspecified place in hospital as the place of occurrence of the external cause
CPT/HCPCS: 71045; 72050; 80048; 80053; 81001; 82962; 83036; 83735; 84100; 85025; 87081; 87086; 90686; 93970; 94640; 94664; 97110; 97112; 97116; 97150; 97163; 97530; 97535